=== PATIENT | male | born 1960 | race Caucasian/White ===

== ENCOUNTER 2024-08-20 16:30 | Emergency (ER) | payer OTHER ==
[~2024-08-20] VITALS: Ht 177.8 cm; Wt 108.0 kg
[2024-08-20 16:42] VITALS: O2SAT 98
[2024-08-20 20:03] VITALS: BP 147/82; PULSE 81; RESP 16; TEMP 36.7; O2SAT 97
== END 2024-08-20 20:10 | disposition home or self-care (01) ==
LOC: ER 16:30
DX: S01.01XA Laceration without foreign body of scalp, initial encounter (principal); S09.90XA Unspecified injury of head, initial encounter; W01.0XXA Fall on same level from slipping, tripping and stumbling without subsequent striking against object, initial encounter; Y93.89 Activity, other specified; Y92.89 Other specified places as the place of occurrence of the external cause; Y99.8 Other external cause status
CPT/HCPCS: 12001; 99284

== ENCOUNTER 2024-08-27 09:57 | Emergency (ER) | payer OTHER ==
[~2024-08-27] VITALS: Ht 182.9 cm; Wt 91.0 kg
[2024-08-27 10:01] VITALS: TEMP 36.8; O2SAT 99
[2024-08-27 10:23] VITALS: BP 131/76; PULSE 75; RESP 18; O2SAT 97
== END 2024-08-27 10:35 | disposition home or self-care (01) ==
LOC: ER 09:57
DX: S01.01XD Laceration without foreign body of scalp, subsequent encounter (principal); X58.XXXD Exposure to other specified factors, subsequent encounter
CPT/HCPCS: 99281; Z7610